=== PATIENT | male | born 1970 | race Two or more races ===

== ENCOUNTER 2018-08-09 09:19 | Emergency (ER) | payer SELFPAY ==
[2018-08-09] MEDS: BUPIVACAINE 0.25% (MPF) 30 ML INJ INJ (10:30)
[2018-08-09] MEDS: BUPIVACAINE 0.25% (MPF) 10 ML 10 ML VIAL INJ (10:42)
== END 2018-08-09 11:10 | disposition home or self-care (01) ==
LOC: FTE 09:19
DX: M54.5 Low back pain (principal); R40.2412 Glasgow coma scale score 13-15, at arrival to emergency department
CPT/HCPCS: 20552; 99283-25